=== PATIENT | male | born 1995 | race Caucasian/White ===

== ENCOUNTER 2018-08-30 13:54 | Emergency (ER) | payer OTHER ==
[~2018-08-30] VITALS: Ht 170.2 cm; Wt 65.8 kg
[~2018-08-30 13:54] MED LIST: AMOX1TAB5 PO; [UNRECOGNIZED DRUG - REMARK]
== END 2018-08-30 15:38 | disposition home or self-care (01) ==
LOC: ER 13:54
DX: S90.111A Contusion of right great toe without damage to nail, initial encounter (principal); W22.8XXA Striking against or struck by other objects, initial encounter; Y93.89 Activity, other specified; Y92.89 Other specified places as the place of occurrence of the external cause; Y99.8 Other external cause status